=== PATIENT | female | born 1985 | race Caucasian/White ===

== ENCOUNTER 2017-05-11 07:04 | Emergency (ER) | payer MEDICAID ==
[~2017-05-11] VITALS: Ht 157.5 cm; Wt 84.1 kg
[~2017-05-11 07:04] MED LIST: PREN1TAB52
[2017-05-11] MEDS ORDERED: LIDOCAINE HCL 2%/EPI 1:200,000/PF 20 ML VIAL INJ ONE (08:00)
[2017-05-11] MEDS ORDERED: BACITRACIN 0.9 GM PACKET OINTMENT TP ONE (08:30)
[2017-05-11 08:37] VITALS: BP 135/80
== END 2017-05-11 09:04 | disposition home or self-care (01) ==
LOC: EMS 07:05
DX: S81.011A Laceration without foreign body, right knee, initial encounter (principal); W45.8XXA Other foreign body or object entering through skin, initial encounter; Y93.02 Activity, running; Y92.89 Other specified places as the place of occurrence of the external cause; Y99.8 Other external cause status
CPT/HCPCS: 12002; 99283; X6474